=== PATIENT | female | born 1985 | race Caucasian/White ===

== ENCOUNTER 2020-10-11 04:29 | Emergency (ER) | payer OTHER, MEDICAID ==
[~2020-10-11] VITALS: Ht 170.2 cm; Wt 108.9 kg
[2020-10-11] MEDS ORDERED: ACETAMINOPHEN-1 EAC2 PO (05:43)
[2020-10-11] MEDS ORDERED: MELOXICAM15 MG PO (05:43)
[2020-10-11 05:50] VITALS: BP 120/80
== END 2020-10-11 05:53 | disposition home or self-care (01) ==
LOC: M.ERS 04:29
DX: R60.0 Localized edema (principal); R20.0 Anesthesia of skin; M79.641 Pain in right hand; M79.642 Pain in left hand; F17.210 Nicotine dependence, cigarettes, uncomplicated; Z87.442 Personal history of urinary calculi